=== PATIENT | male | born 2000 | race Caucasian/White ===

== ENCOUNTER 2019-05-22 03:57 | Emergency (ER) | payer SELFPAY ==
[~2019-05-22] VITALS: Ht 167.6 cm; Wt 90.7 kg
[2019-05-22 03:57] VITALS: BP 111/77
--- NOTE | 2019-05-22 03:57 | NUR ---
PT [employer] [employer], PREBOOK. TAKEN TO BED 7
--- NOTE | 2019-05-22 03:58 | NUR ---
Dr. Larry examining patient.
--- NOTE | 2019-05-22 04:10 | NUR ---
PATIENT PRESENTS TO ED WITH BIB [place] [employer]. ETOH PREBOOK. VSS. 0/10 PAIN. SKIN IS PINK/WARM/DRY; PATIENT POSITIONED FOR COMFORT; HOB ELEVATED; BEDRAILS UP X2; BED DOWN. ER MD MADE AWARE OF PT STATUS.
[2019-05-22] MEDS ORDERED: NACL 0.9% 1,000 ML IV ONE (04:20)
[2019-05-22 05:32] VITALS: BP 118/64
--- NOTE | 2019-05-22 05:32 | NUR ---
PATIENT EXAMINED BY DR. HOPSON. PATIENT MEDICALLY CLEARED AND RELEASED IN CUSTODY IN STABLE CONDITION. ORIGINAL PRE-BOOK FORM GIVEN TO [place] [employer] OFFICER.
== END 2019-05-22 05:32 | disposition home or self-care (01) ==
LOC: MED 03:57
DX: F10.129 Alcohol abuse with intoxication, unspecified (principal); M25.531 Pain in right wrist; R05 Cough
CPT/HCPCS: 99283; J7030